=== PATIENT | male | born 1995 | race American Indian/Alaskan Native ===

== ENCOUNTER 2016-09-12 17:46 | Emergency (ER) | payer SELFPAY ==
[2016-09-12] MEDS ORDERED: XYLOCAINE 1% MPF 5 mL ONE (22:12)
[2016-09-12] MEDS ORDERED: BOOSTRIX IM ONE (22:44)
--- NOTE | 2016-09-12 22:48 | Emergency Department Report ---
- General Chief complaint: Skin/Abscess/Foreign Body Stated complaint: FOOT INJURY Time Seen by Provider: 09/12/16 22:03 Source: patient Mode of arrival: Ambulatory Limitations: No Limitations - History of Present Illness Initial comments: "I stepped on a piece of glass and it stuck in my foot" Onset/Timin -: Sudden, days(s) Tetanus Up to Date: no Location: L foot Severity: moderate Severity scale (0 -10): 3 Quality: sharp Consistency: intermittent Improves with: rest Worsens with: palpation, movement Context: other (stepped on piece or glass ) Associated symptoms: denies other symptoms Treatments Prior to Arrival: none - Related Data Previous Rx's Medication Instructions Recorded Last Taken Type Ibuprofen [Motrin] 800 mg PO Q8H PRN #20 tablet 08/31/13 Unknown Rx Amoxicillin 500 mg PO TID #21 capsule 03/01/16 Unknown Rx Docusate Sodium [Colace CAP] 100 mg PO BID PRN #14 capsule 03/01/16 Unknown Rx Fluticasone [Flonase] 1 spray NS QDAY #1 bottle 03/01/16 Unknown Rx Polyethylene Glycol 3350 [Miralax 17 gm PO QDAY #7 packet 03/01/16 Unknown Rx 3350] Sennosides [Senna] 8.6 mg PO QHS #7 tablet 03/01/16 Unknown Rx Allergies Allergy/AdvReac Type Severity Reaction Status Date / Time No Known Allergies Allergy Verified 09/12/16 18:00 Abscess Boil HPI - HPI Chief Complaint: Skin/Abscess/Foreign Body Stated Complaint: FOOT INJURY Time Seen by Provider: 09/12/16 22:03 Duration: 1 Day Location: Other (left dorsal foot) History: Yes Pain, Yes Foreign Body, No Fever, No Purulent Drainage, No Numbness , No Previous History, No Insect Bite Home Medications: Previous Rx's Medication Instructions Recorded Last Taken Type Ibuprofen [Motrin] 800 mg PO Q8H PRN #20 tablet 08/31/13 Unknown Rx Amoxicillin 500 mg PO TID #21 capsule 03/01/16 Unknown Rx Docusate Sodium [Colace CAP] 100 mg PO BID PRN #14 capsule 03/01/16 Unknown Rx Fluticasone [Flonase] 1 spray NS QDAY #1 bottle 03/01/16 Unknown Rx Polyethylene Glycol 3350 [Miralax 17 gm PO QDAY #7 packet 03/01/16 Unknown Rx 3350] Sennosides [Senna] 8.6 mg PO QHS #7 tablet 03/01/16 Unknown Rx Allergies/Adverse Reactions: Allergies Allergy/AdvReac Type Severity Reaction Status Date / Time No Known Allergies Allergy Verified 09/12/16 18:00 ED Review of Systems ROS: Stated complaint: FOOT INJURY Other details as noted in HPI Constitutional: denies: chills, fever Eyes: denies: eye pain, eye discharge, vision change ENT: denies: ear pain, throat pain Respiratory: denies: cough, shortness of breath, wheezing Cardiovascular: denies: chest pain, palpitations Endocrine: no symptoms reported Gastrointestinal: denies: abdominal pain, nausea, diarrhea Genitourinary: denies: urgency, dysuria Musculoskeletal: denies: back pain, joint swelling, arthralgia Skin: other (foriegnbody foot ) Neurological: denies: headache, weakness, paresthesias Psychiatric: denies: anxiety, depression Hematological/Lymphatic: denies: easy bleeding, easy bruising ED Past Medical Hx - Past Medical History Previous Medical History?: No - Surgical History Past Surgical History?: No - Social History Smoking Status: Never Smoker - Medications Home Medications: Home Medications Medication Instructions Recorded Confirmed Last Taken Type Ibuprofen [Motrin] 800 mg PO Q8H PRN #20 tablet 08/31/13 Unknown Rx Amoxicillin 500 mg PO TID #21 capsule 03/01/16 Unknown Rx Docusate Sodium [Colace CAP] 100 mg PO BID PRN #14 capsule 03/01/16 Unknown Rx Fluticasone [Flonase] 1 spray NS QDAY #1 bottle 03/01/16 Unknown Rx Polyethylene Glycol 3350 [Miralax 17 gm PO QDAY #7 packet 03/01/16 Unknown Rx 3350] Sennosides [Senna] 8.6 mg PO QHS #7 tablet 03/01/16 Unknown Rx ED Physical Exam - General Limitations: No Limitations General appearance: alert, in no apparent distress - Head Head exam: Present: atraumatic, normocephalic - Eye Eye exam: Present: normal appearance - ENT ENT exam: Present: mucous membranes moist - Neck Neck exam: Present: normal inspection - Respiratory Respiratory exam: Present: normal lung sounds bilaterally. Absent: respiratory distress - Cardiovascular Cardiovascular Exam: Present: regular rate, normal rhythm. Absent: systolic murmur, diastolic murmur, rubs, gallop - GI/Abdominal GI/Abdominal exam: Present: soft, normal bowel sounds - Rectal Rectal exam: Present: deferred - Expanded Lower Extremity Exam Left Hip exam: Present: normal inspection Upper Leg exam: Present: normal inspection Knee exam: Present: normal inspection Lower Leg exam: Present: normal inspection Ankle exam: Present: normal inspection Foot/Toe exam: Present: full ROM, tenderness, puncture wound, foreign body. Absent: swelling, abrasion, laceration, ecchymosis, deformity, crepidus, dislocation, erythema, amputation, calcaneal tenderness, tenderness at base of 5th metatarsal, nail avulsion, subungual hematoma Neuro vascular tendon exam: Absent: no vascular compromise, pulse deficit, abnormal cap refill, motor deficit, sensory deficit, tendon deficit, extremity cold to touch, pallor, abnormal 2-point discrimination, decreased fine/light touch, foot drop, peroneal nerve deficit, significant pain with passive ROM of distal joint Gait: Positive: observed and normal - Back Exam Back exam: Present: normal inspection - Neurological Exam Neurological exam: Present: alert, oriented X3 - Psychiatric Psychiatric exam: Present: normal affect, normal mood - Skin Skin exam: Present: warm, dry, intact, normal color. Absent: rash ED Course Vital Signs 09/12/16 18:01 Temperature 98.8 F Pulse Rate 77 Respiratory 18 Rate Blood Pressure 156/90 O2 Sat by Pulse 100 Oximetry - I & D Left Plantar Foot Type of Procedure: Simple Site: left plantar medial foot pain puncture wound foreign body Blade Size: 18g needle I & D Procedure: betadine prep, gauze wick placed Progress: minimal puncture wound foreign body seen glass, less than 1 cm, foot cleaned with betadine solution, anethesia with 1% lidocaine, foriegnbody removal via straight needle , foreignbody removed intact , pain relieved, band aide applied no bleeding pt tolerated with minimal distress , pt now ambulatory without pain or gait disturbance. ED Medical Decision Making - Medical Decision Making stepped on piece of glass in home while bare foot , foreignbody removed intact see procedure note, pt tolerated with minimal distress, Tdap given, pt given wound care instructions including symptoms of infection, pt verbalized agreement and understanding with same pt is currently a/o x 3 ambulatory without gait disturbance , no pain no tingling no numbness no foreignbody sensation. Critical care attestation.: If time is entered above; I have spent that time in minutes in the direct care of this critically ill patient, excluding procedure time. ED Disposition Clinical Impression: Foreign body in foot, left Qualifiers: Encounter type: initial encounter Qualified Code(s): S90.852A - Superficial foreign body, left foot, initial encounter Disposition: DC- TO HOME OR SELFCARE Is pt being admited?: No Does the pt Need Aspirin: No Condition: Good Instructions: Laceration (ED) Referrals: PRIMARY CARE, [Primary Care Provider] - 3-5 Days Forms: Work/School Release Form(ED) Time of Disposition: 22:56
[2016-09-12 23:12] VITALS: BP 136/90
== END 2016-09-12 23:14 | disposition home or self-care (01) ==
LOC: ED 17:46
DX: S90.852A Superficial foreign body, left foot, initial encounter (principal); W45.8XXA Other foreign body or object entering through skin, initial encounter; Y93.89 Activity, other specified; Y99.8 Other external cause status; Y92.89 Other specified places as the place of occurrence of the external cause